=== PATIENT | male | born 1985 | race Two or more races ===

== ENCOUNTER → 2022-01-28 | Emergency (ER) | payer OTHER ==
[~2022-01-28] VITALS: Ht 167.6 cm; Wt 63.5 kg
[~2022-01-28] MED LIST: CETIRIZINE HCL5 M1 PO; TRIDESILON60 GM TOP
== END | disposition home or self-care (01) ==
LOC: ER 17:31
DX: R21 Rash and other nonspecific skin eruption (principal)